=== PATIENT | female | born 1960 | race Hispanic/Latino ===

== ENCOUNTER 2018-03-17 13:51 | Emergency (ER) | payer BC, OTHER ==
[2018-03-17 15:28] LABS: HIV (1/2) Antibody/Antigen Non-Reactive (NonReactive); HIV 1/2 INDEX 0.11 S/CO (<1.00); Hep C IgG Ab Non-Reactive (NonReactive); Hep C Index 0.17 S/CO (0-0.79)
[2018-03-17 16:16] LABS: HBSAB Concentration 96.81 mIU/mL; Hep B Surf AB Reactive (NonReactive)
== END 2018-03-17 15:00 | disposition home or self-care (01) ==
LOC: ERS 13:51
DX: S61.432A Puncture wound without foreign body of left hand, initial encounter (principal); Z77.21 Contact with and (suspected) exposure to potentially hazardous body fluids; E03.9 Hypothyroidism, unspecified; I10 Essential (primary) hypertension; Z79.899 Other long term (current) drug therapy; W22.8XXA Striking against or struck by other objects, initial encounter
CPT/HCPCS: 36415; 86706; 86803; 87389; 99283

== ENCOUNTER 2018-10-01 13:04 | Outpatient (CLI) | payer OTHER ==
--- NOTE | 2018-10-01 14:03 | ULT ---
VENOUS DUPLEX STUDY RIGHT LOWER EXTREMITY: Deep veins of right lower extremity evaluated with color Doppler, spectral analysis, and compression. INDICATION: Pain and edema right lower extremity. FINDINGS: Deep veins of right lower extremity show normal blood flow and compression. No evidence of DVT. Fluid collection seen in the right popliteal fossa suggests Harley's cyst. IMPRESSION: 1. No evidence of right lower extremity deep vein thrombosis. 2. Fluid collection in the right popliteal fossa suggests a Harley's cyst. POS: PATSY
== END 2018-10-01 13:05 | disposition home or self-care (01) ==
LOC: BICULT 13:04
PROVIDERS: ATTEND Family Medicine
DX: M25.461 Effusion, right knee (principal)